=== PATIENT | female | born 1990 | race Hispanic/Latino ===

== ENCOUNTER 2018-05-28 20:39 | Emergency (ER) | payer MEDICAID, OTHER ==
[2018-05-28 20:39] VITALS: BMI 29.7
--- NOTE | 2018-05-28 21:30 | C.PDOC ---
History Of Present Illness 28 year old female (), LMP 11-18, presents to the emergency department with complaints of lower abdominal cramping for two weeks. Patient states that she recently found out that she has low progesterone levels, and was prescribed a supplement which she has not started taking. Patient states that today she also started having pinkish vaginal discharge, but is not passing any clots. Patient presents to the ED tonight because she is concerned. Time Seen by Provider: 05/28/18 20:49 Chief Complaint (Nursing): Female Genitourinary History Per: Patient History/Exam Limitations: no limitations Onset/Duration Of Symptoms: Other (two weeks) Quality Of Discomfort: Cramping Associated Symptoms: Other (vaginal discharge). denies: Fever, Chills : 6 Para: 2 Past Medical History Reviewed: Historical Data, Nursing Documentation, Vital Signs Vital Signs: Last Vital Signs Temp 98.9 F 05/28/18 20:41 Pulse 89 05/28/18 20:41 Resp 20 05/28/18 20:41 BP 114/78 05/28/18 20:41 Pulse Ox 99 05/28/18 20:41 - Medical History PMH: No Chronic Diseases Surgical History: No Surg Hx - [facility] Procedures CYSTOSCOPY NEC (05/20/14) URETERAL CATHETERIZATION (05/20/14) Family History: States: No Known Family Hx - Social History Hx Tobacco Use: No Hx Alcohol Use: No Hx Substance Use: No - Immunization History Hx Tetanus Toxoid Vaccination: No Hx Influenza Vaccination: No Hx Pneumococcal Vaccination: No Review Of Systems Constitutional: Negative for: Fever, Chills Gastrointestinal: Positive for: Abdominal Pain (lower abdominal cramping). Negative for: Nausea, Vomiting Genitourinary: Positive for: Vaginal Discharge (pinkish) Physical Exam - Physical Exam Appears: Well, Non-toxic, No Acute Distress Skin: Normal Color, Warm, Dry Head: Atraumatic, Normacephalic Eye(s): bilateral: Normal Inspection, PERRL, EOMI Nose: Normal Neck: Normal, Supple Chest: Symmetrical, No Tenderness Cardiovascular: Rhythm Regular, No Murmur Respiratory: Normal Breath Sounds, No Rales, No Rhonchi, No Wheezing Gastrointestinal/Abdominal: Soft, Tenderness (mild lower abdominal tenderness), No Guarding, No Rebound, Other (horizontal scar) Extremity: Normal ROM Neurological/Psych: Oriented x3, Normal Speech ED Course And Treatment - Laboratory Results Result Diagrams: 05/28/18 22:22 05/28/18 22:22 O2 Sat by Pulse Oximetry: 99 (RA) Pulse Ox Interpretation: Normal Medical Decision Making Medical Decision Making: Plan: Bloodbank Type and Screen Chemistry Bloodwork Urinalysis US Transvaginal Disposition Counseled Patient/Family Regarding: Studies Performed, Diagnosis, Need For Followup, Rx Given - Disposition Referrals: Daniel Almanzar MD [Staff Provider] - Disposition: HOME/ ROUTINE Disposition Time: 23:46 Condition: GOOD Additional Instructions: Drink increased fluids. Take antibiotics as prescribed. Nothing in vagina- no sex, no tampons or douching. Follow up with Dr Almanzar in 2 days, show her test results. Return to ER for worse pain. heavy vaginal bleeding (one pad per hour). Prescriptions: Nitrofurantoin Macrocrystals [Macrobid] 100 mg PO BID #14 cap Instructions: Threatened Miscarriage (DC), Urinary Tract Infection, Adult (DC) Forms: [facility] (Italian), General Discharge Instructions - Clinical Impression Clinical Impression: Threatened in early , UTI (urinary tract infection) during - PA / [employer] / Resident Statement MD/ has reviewed & agrees with the documentation as recorded. - Scribe Statement The provider has reviewed the documentation as recorded by the Scribe (Altaf Guy) All medical record entries made by the Scribe were at my direction and personally dictated by me. I have reviewed the chart and agree that the record accurately reflects my personal performance of the history, physical exam, medical decision making, and the department course for this patient. I have also personally directed, reviewed, and agree with the discharge instructions and disposition.
[2018-05-28 22:26] LABS: BASO % 0.4 % (0.0-2.0); EOS # 0.1 K/uL (0.0-0.7); EOS % 1.1 % (0.0-4.0); HEMOGLOBIN 12.6 g/dL (11.0-16.0); LYMPH # 2.1 K/uL (1.0-4.3); LYMPH % 23.8 % (20.0-40.0); MEAN CELL VOLUME 87.6 fL (81.0-99.0); MEAN CORPUSCULAR HEMOGLOBIN 29.5 pg (27.0-31.0); MEAN CORPUSCULAR HGB CONC 33.7 g/dL (33.0-37.0); MEAN PLATELET VOLUME 7.4 fL (7.2-11.7); MONO # 0.8 K/uL (0.0-0.8); MONO % 8.8 % (0.0-10.0); NEUT # 5.9 K/uL (1.8-7.0); NEUT % 65.9 % (50.0-75.0); RBC 4.25 Mil/uL (3.80-5.20); RED CELL DISTRIBUTION WIDTH 12.7 % (11.5-14.5)
[2018-05-28 22:39] LABS: ALB/GLOB RATIO 1.5 (1.0-2.1); ALT/SGPT 27 U/L (9-52); AST/SGOT 28 U/L (14-36); BLOOD UREA NITROGEN 17 mg/dL (7-17); CALCIUM 9.5 mg/dl (8.6-10.4); GFR NON-AFRICAN AMERICAN > 60
[2018-05-28 22:49] LABS: SQUAMOUS EPITHIAL 7 /hpf (0-5); URINE BACTERIA OCC (<OCC); URINE BILIRUBIN NEGATIVE (NEGATIVE); URINE BLOOD NEGATIVE (NEGATIVE); URINE CLARITY Hazy (Clear); URINE COLOR Yellow (YELLOW); URINE GLUCOSE (UA) NORMAL (Normal); URINE LEUKOCYTE ESTERASE 1+ Leu/uL (Negative); URINE PROTEIN NEGATIVE (NEGATIVE)
[2018-05-28 23:43] VITALS: BP 121/66; PULSE 85; RESP 16; TEMP 98.1
[2018-05-28 23:48] VITALS: O2SAT 99
--- NOTE | 2018-05-29 16:58 | US ---
Date of service: 05/28/2018 Indication: preg with cramps and spotting today Comparison: Pelvis/transvaginal ultrasound performed 01/31/15 Technique: Transvaginal pelvic ultrasound Findings: Uterus measures approximately 8.4 x 5.8 x 7.5 cm. Retroverted. Cervix length measures approximately 2.8 cm. Evidence of an intrauterine gestational sac which measures approximately 0.2 cm, too small for gestational age calculation. No evidence of pole or yolk sac at this time. The right ovary measures 3.1 x 2.4 x 3.0 cm. The left ovary measures 3.1 x 1.8 x 3.6 cm. Blood flow was demonstrated to both ovaries. Impression: Intrauterine gestational sac measures approximately 0.2 cm, too small for gestational age calculation. No evidence of pole or yolk sac at this time. Recommend correlation with quantitative beta HCG and follow-up as indicated. Advise an anomaly screen at 16-18 weeks gestational age. Preliminary impression was provided by [employer].
== END 2018-05-29 00:11 | disposition home or self-care (01) ==
LOC: C.ER 20:39
DX: O20.0 Threatened abortion (principal); O23.41 Unspecified infection of urinary tract in pregnancy, first trimester; Z3A.00 Weeks of gestation of pregnancy not specified